=== PATIENT | female | born 1995 | race African-American/Black ===

== ENCOUNTER 2023-08-24 21:05 | Emergency (ER) | payer BC ==
[2023-08-24] MEDS ORDERED: Ibuprofen 800 MG TAB ONE (21:39)
== END 2023-08-24 21:43 | disposition home or self-care (01) ==
LOC: NAV ERS 21:05
DX: S29.011A Strain of muscle and tendon of front wall of thorax, initial encounter (principal); F17.290 Nicotine dependence, other tobacco product, uncomplicated; X58.XXXA Exposure to other specified factors, initial encounter

== ENCOUNTER 2025-08-28 04:20 | Emergency (ER) | payer BC ==
[2025-08-28 04:55] LABS: #Basophils 0.1 thou/uL (0.0-0.2); #Eosinophils 0.0 thou/uL (0.0-0.7); #Lymphocytes 2.1 thou/uL (1.20-3.40); #Monocytes 0.8 thou/uL (0.11-0.59); #Neutrophils 3.1 thou/uL (1.40-6.50); %Basophils 1.3 % (0.0-1.0); %Eosinophils 0.4 % (0.0-10.0); %Lymphocytes 34.6 % (21.0-51.0); %Monocytes 12.3 % (0.0-10.0); %Neutrophils 51.3 % (42.0-75.0); Hematocrit 35.2 % (36.0-47.0); Hemoglobin 12.8 g/dL (12.0-16.0); Mean Corpuscular Hemoglobin 30.8 pg (27.0-31.0); Mean Corpuscular Volume 84.6 fl (78.0-98.0); Platelet Count 243 10x3/uL (130-400); Red Blood Cell (RBC) Count 4.16 mill/uL (4.20-5.40); White Blood Cell (WBC) Count 6.1 10x3/uL (4.8-10.8)
[2025-08-28] MEDS ORDERED: levETIRAcetam 500 MG (5 mL) VIAL ONE (04:55)
[2025-08-28] MEDS ORDERED: Ondansetron PF 4 MG/2 ML Vial ONE (04:55)
[2025-08-28 05:06] LABS: ALT (SGPT) 15 U/L (Less than 34); AST (SGOT) 23 U/L (11-34); Albumin 3.9 g/dL (3.1-4.5); Alkaline Phosphatase 59 U/L (40-110); Anion Gap 11 mmol/L (10-20); BUN (Urea Nitrogen) 11 mg/dL (7.0-18.7); Bilirubin, Total 0.4 mg/dL (0.3-1.2); Calc. Creatinine Clearance 0 mL/min (70-130); Calcium 8.9 mg/dL (7.8-10.44); Carbon Dioxide 22 mmol/L (22-29); Chloride 107 mmol/L (98-107); Globulin 3.8 g/dL (2.4-3.5); Glucose 92 mg/dL (70-105); Potassium 4.1 mmol/L (3.5-5.1); Sodium 136 mmol/L (136-145); Troponin I Less than 0.010 ng/mL (< 0.028)
[2025-08-28 05:14] LABS: Glucose, Urine (Dipstick) Negative (Negative); Leukocyte Negative (Negative); Protein, Urine (Dipstick) 30 mg/dL (Neg-Trace); Specific Gravity, Urine 1.025 (1.005-1.030)
[2025-08-28 05:19] LABS: Bacteria/HPF None Seen HPF (None Seen); CAUTI Indications for Culture Alt mental st,lethar; Mucous/LPF 3+ LPF (<2+); RBC/HPF 0-3 HPF (0-3); Urine Culture Reflex No No; WBC/HPF 0-3 HPF (0-3)
[2025-08-28 05:23] LABS: Cocaine Metabolite Screen Negative (Negative); THC/Cannabinoid Screen Negative (Negative); Tricyclic Screen Negative (Negative)
[2025-08-28] MEDS ORDERED: Acetaminophen 500 MG TAB ONE (05:31)
== END 2025-08-28 06:17 | disposition home or self-care (01) ==
LOC: NAV ERS 04:20
DX: G40.909 Epilepsy, unspecified, not intractable, without status epilepticus (principal); F17.290 Nicotine dependence, other tobacco product, uncomplicated
CPT/HCPCS: 70450; 80053; 80306; 81001; 83605; 84484; 85025; 93005; 96365; 96375; J1953; J2405; J7030